=== PATIENT | male | born 1970 | race Caucasian/White ===

== ENCOUNTER 2018-05-29 08:50 | Day surgery (SDC) | payer OTHER ==
[~2018-05-29] VITALS: Ht 177.8 cm; Wt 85.3 kg
[2018-05-29] MEDS ORDERED: SODIUM CHLORIDE 0.9% 1,000 ML IV SCH (09:28)
[2018-05-29] MEDS ORDERED: METF500T17 PO (09:30)
[2018-05-29] MEDS ORDERED: EZET10TA18 PO (09:30)
[2018-05-29 09:31] VITALS: BP 131/86
[2018-05-29] MEDS ORDERED: CALCIUM PO (09:42)
[2018-05-29] MEDS ORDERED: ATOR-2 PO (09:42)
[2018-05-29] MEDS ORDERED: VITAMIN D3 PO (09:42)
[2018-05-29] MEDS ORDERED: ASPI-496 PO (09:42)
[2018-05-29 09:44] LABS: BASOPHILS # (AUTO) 0.03 x10^3/uL (0-0.1); BASOPHILS % (AUTO) 1 % (0-1); EOSINOPHILS # (AUTO) 0.14 x10^3/uL (0-0.4); EOSINOPHILS % (AUTO) 3 % (1-7); LYMPHOCYTES # (AUTO) 1.36 x10^3/uL (1-3.4); LYMPHOCYTES % (AUTO) 28 % (22-44); MD NO; MEAN CORPUSCULAR HEMOGLOBIN 28.6 pg (27.5-34.5); MEAN CORPUSCULAR HGB CONC 33.4 g/dL (33.2-36.2); MEAN CORPUSCULAR VOLUME 85.8 fL (81-97); MEAN PLATELET VOLUME 10.7 fL (7.4-10.4); MONOCYTES # (AUTO) 0.44 x10^3/uL (0.2-0.8); MONOCYTES % (AUTO) 9 % (2-9); NEUTROPHILS # (AUTO) 2.96 x10^3/uL (1.8-6.8); NEUTROPHILS % (AUTO) 60 % (42-75); PLATELET COUNT 137 x10^3/uL (130-400); RED BLOOD COUNT 5.37 x10^6/uL (4.38-5.82); RED CELL DISTRIBUTION WIDTH 14.3 % (9.4-14.8)
[2018-05-29 09:52] LABS: INTERNATIONAL NORMALIZED RATIO 1.07 (0.93-1.1); PROTHROMBIN TIME 11.3 Seconds (9.6-11.5)
[2018-05-29] MEDS ORDERED: PLEASE ENTER HEIGHT AND WEIGHT MC SCH (10:00)
[2018-05-29] MEDS ORDERED: LIDOCAINE-MPF 1%, 5ML ONE (10:03)
[2018-05-29] MEDS ORDERED: MIDAZOLAM 1 MG/ML, 5ML ONE (11:01)
[2018-05-29] MEDS ORDERED: FENTANYL PF 100 MCG/2ML ONE (11:01)
== END 2018-05-29 13:05 | disposition home or self-care (01) ==
LOC: OUT 08:50 → EDSTATUS 13:30
PROVIDERS: ATTEND Internal Medicine
DX: K75.81 Nonalcoholic steatohepatitis (NASH) (principal); K74.0 Hepatic fibrosis; D69.6 Thrombocytopenia, unspecified; E11.9 Type 2 diabetes mellitus without complications; E78.00 Pure hypercholesterolemia, unspecified; Z79.84 Long term (current) use of oral hypoglycemic drugs
CPT/HCPCS: 36415; 47000; 76942; 85025; 85610; 88307; 88313; 99156; 99157; J2250; J3010; J7030